=== PATIENT | female | born 1935 | race Hispanic/Latino ===

== ENCOUNTER → 2020-08-24 | Day surgery (SDC) | payer MEDICARE ==
[~2020-08-24] MED LIST: FENTANYL CITRATE/PF 100MCG/2 ML INJ ONE; GABAPENTIN300 MG PO; LISINOPRIL-HCT1 EAC4 PO; MIDAZOLAM HCL 2 MG/2 ML VIAL ONE; OR PHACO EYE KIT ONE; PANTOPRAZOLE SO40 MG PO; PREOP PHACO EYE KIT ONE; TRAZODONE HCL100 MG PO; Z.0.AMLODIPINE BESY1 PO; Z.0.LOVASTATIN40 MG PO; Z.0.NEXIUM40 MG PO; ZYRTEC
[2020-08-24 14:15] VITALS: BP 145/66
== END | disposition home or self-care (01) ==
LOC: OR 11:44
PROVIDERS: ATTEND Ophthalmology
DX: H25.12 Age-related nuclear cataract, left eye (principal); G89.29 Other chronic pain; K21.9 Gastro-esophageal reflux disease without esophagitis; I10 Essential (primary) hypertension; E78.5 Hyperlipidemia, unspecified; J41.1 Mucopurulent chronic bronchitis; F17.210 Nicotine dependence, cigarettes, uncomplicated; Z88.6 Allergy status to analgesic agent; Z88.2 Allergy status to sulfonamides; Z68.37 Body mass index [BMI] 37.0-37.9, adult
CPT/HCPCS: 66984; J2250; J3010; V2632

== ENCOUNTER → 2020-09-07 | Day surgery (SDC) | payer MEDICARE ==
[2020-09-06 13:13] LABS: BASOPHILS # (AUTO) 0.1 (0.0-0.1); BASOPHILS % 1.1 % (0.0-1.0); EOSINOPHILS # (AUTO) 0.3 (0.0-0.4); EOSINOPHILS % 4.3 % (0.0-6.0); HEMATOCRIT 35.2 % (34.2-44.1); HEMOGLOBIN 11.3 g/dL (12.0-16.0); LYMPHOCYTES # (AUTO) 1.6 (1.0-3.2); LYMPHOCYTES % 22.7 % (18.0-39.1); MEAN CORPUSCULAR HGB CONC 32.1 g/dL (31-35); MEAN CORPUSCULAR VOLUME 90.5 fL (81-99); MONOCYTES # (AUTO) 0.7 (0.2-0.8); MONOCYTES % 9.3 % (4.4-11.3); NEUTROPHILS # (AUTO) 4.5 (2.1-6.9); NEUTROPHILS % 62.3 % (38.7-80.0); PLATELET COUNT 247 x10e3/uL (140-360); RED BLOOD COUNT 3.89 x10e6/uL (3.6-5.1); RED CELL DISTRIBUTION WIDTH 13.7 % (11.7-14.4)
[2020-09-07 15:45] VITALS: BP 158/72
== END | disposition home or self-care (01) ==
LOC: OR 12:04
PROVIDERS: ATTEND Ophthalmology
DX: H25.013 Cortical age-related cataract, bilateral (principal); E78.5 Hyperlipidemia, unspecified; I10 Essential (primary) hypertension; J98.6 Disorders of diaphragm; G89.29 Other chronic pain; J41.1 Mucopurulent chronic bronchitis; K21.9 Gastro-esophageal reflux disease without esophagitis; G62.9 Polyneuropathy, unspecified; Z01.812 Encounter for preprocedural laboratory examination
CPT/HCPCS: 36415; 66984; 85025; J2250; J3010